=== PATIENT | female | born 1935 | race African-American/Black ===

== ENCOUNTER 2019-04-13 11:50 | Emergency (ER) | payer MEDICARE, OTHER, BC ==
[~2019-04-13] VITALS: Ht 160 cm; Wt 75.0 kg
[~2019-04-13 11:50] MED LIST: ENAL10TA PO
[2019-04-13 12:29] VITALS: BP 128/45
== END 2019-04-13 18:30 | disposition left against medical advice (07) ==
LOC: ER 11:50
DX: Z53.21 Procedure and treatment not carried out due to patient leaving prior to being seen by health care provider (principal); I10 Essential (primary) hypertension; Z88.6 Allergy status to analgesic agent

== ENCOUNTER 2019-04-16 18:02 | Emergency (ER) | payer MEDICARE, OTHER ==
[~2019-04-16] VITALS: Ht 162.6 cm; Wt 73.0 kg
[2019-04-16 18:08] VITALS: BP 168/87
== END 2019-04-16 20:33 | disposition left against medical advice (07) ==
LOC: ER 18:02
DX: R07.89 Other chest pain (principal); Z53.21 Procedure and treatment not carried out due to patient leaving prior to being seen by health care provider
CPT/HCPCS: 93005

== ENCOUNTER 2019-04-18 05:02 | Emergency (ER) | payer MEDICARE, OTHER ==
[~2019-04-18] VITALS: Ht 160 cm; Wt 75.0 kg
[2019-04-18 07:45] LABS: CHLORIDE 110 mEq/L (98-107)
[2019-04-18] MEDS ORDERED: ALBUTEROL (0.083%) 2.5MG/3ML NEB HHN STA (07:49)
[2019-04-18 08:21] LABS: HEMATOCRIT. 31.3 % (36.0-48.0); MEAN CORPUSCULAR HEMOGLOBIN 28.2 pg (28.0-32.0); MEAN CORPUSCULAR VOLUME 88.2 fL (81.0-99.0); MEAN PLATELET VOLUME 7.1 fl (7.4-10.4); PLATELET 260 x1000/uL (130-400); RED BLOOD CELL COUNT 3.55 mill/uL (4.2-5.4); RED CELL DISTRIBUTION WIDTH 13.6 % (11.6-14.6)
[2019-04-18 08:40] LABS: PLATELET ESTIMATE NORMAL
[2019-04-18 09:12] VITALS: BP 132/72
== END 2019-04-18 09:27 | disposition home or self-care (01) ==
LOC: ER 05:02
DX: B34.9 Viral infection, unspecified (principal); I10 Essential (primary) hypertension; Z88.5 Allergy status to narcotic agent
CPT/HCPCS: 36415; 71045; 80053; 85025; 87804; 93005; 94640; 99284; J7611

== ENCOUNTER 2019-04-25 03:20 | Inpatient (IN) | payer MEDICARE, OTHER ==
[~2019-04-25] VITALS: Ht 160 cm; Wt 83.5 kg
[2019-04-25] MEDS ORDERED: ONDANSETRON HCL 4MG/2ML INJ IV STA (03:53)
[2019-04-25 04:16] LABS: HEMATOCRIT. 30.9 % (36.0-48.0); MEAN CORPUSCULAR HEMOGLOBIN 28.3 pg (28.0-32.0); MEAN CORPUSCULAR VOLUME 87.7 fL (81.0-99.0); PLATELET 326 x1000/uL (130-400); RED BLOOD CELL COUNT 3.53 mill/uL (4.2-5.4)
[2019-04-25 04:19] LABS: CHLORIDE 112 mEq/L (98-107)
[2019-04-25 04:35] LABS: PLATELET ESTIMATE NORMAL
[2019-04-25 14:18] LABS: CREATINE KINASE 43 IU/L (26-192)
[2019-04-25 15:28] VITALS: BP 131/93
[2019-04-25 16:33] LABS: BG BASE EXCESS -3.8 mmol/L (-2.0-2.0); BG CARBOXYHEMOGLOBIN 0.3 % (0.5-1.5); BG DEOXYHEMOGLOBIN 3.5 % (0.0-5.0); BG FRACTION INSPIRED OXYGEN 21; BG HCO3 ACT 20.9 mmol/L (22.0-26.0); BG METHEMOGLOBIN 0.1 % (0.0-1.5); BG OXYGEN SATURATION 96.5 % (92.0-98.5); BG OXYHEMOGLOBIN 96.1 % (94.0-97.0); BG PCO2 36.7 mmHg (35.0-45.0); BG PH 7.373 (7.350-7.450); BG PO2 86.8 mmHg (75.0-100.0); BG SAMPLE SITE RIGHT BRACHIAL; BG TOTAL HEMOGLOBIN 11.2 g/dL (12.0-18.0); BG VENT MODE ROOM AIR
[2019-04-25] MEDS ORDERED: SODIUM CHLORIDE 10% FOR INH 15ML VIAL NEB INH NR (17:00)
[2019-04-25] MEDS: MECLIZINE 12.5MG TABLET PO PRN (18:24)
[2019-04-25] MEDS: AMLODIPINE 5MG TABLET PO SCH (18:24)
[2019-04-25] MEDS: SODIUM CHLORIDE 0.45% 1,000 ML IV SCH (18:25)
[2019-04-25] MEDS: GUAIFENESIN/DM 600MG/30MG ER TAB 12HR PO PRN (18:25)
[2019-04-25 20:14] VITALS: BP 115/48
[2019-04-25 20:39] LABS: CLARITY URINE CLEAR (CLEAR); COLOR URINE YELLOW (YELLOW); KETONES URINE NEGATIVE (NEGATIVE); LEUKOCYTE ESTERASE URINE NEGATIVE (NEGATIVE); NITRITE URINE NEGATIVE (NEGATIVE); OCCULT BLOOD URINE NEGATIVE (NEGATIVE); PROTEIN URINE NEGATIVE (NEGATIVE); SPECIFIC GRAVITY URINE 1.015 (1.005-1.030); UROBILINOGEN URINE 0.2 E.U./dL (0.2-1.0)
[2019-04-25] MEDS: IPRATROPIUM/ALBUTEROL 0.5-3(2.5)MG/3ML NEB HHN SCH (20:45)
[2019-04-26] MEDS: IPRATROPIUM/ALBUTEROL 0.5-3(2.5)MG/3ML NEB HHN SCH ×6 (00:43→19:58)
[2019-04-26 00:44] VITALS: BP 119/49
[2019-04-26 04:50] VITALS: BP 133/48
[2019-04-26 06:55] LABS: BASOPHILS % 0.3 % (0.0-2.0); HEMATOCRIT. 32.3 % (36.0-48.0); HEMOGLOBIN. 10.6 g/dL (12.0-16.0); LYMPHOCYTES % 22.1 % (20.0-50.0); MEAN CORPUSCULAR HEMOGLOBIN 28.7 pg (28.0-32.0); MEAN CORPUSCULAR VOLUME 87.2 fL (81.0-99.0); MEAN PLATELET VOLUME 7.1 fl (7.4-10.4); MONOCYTES % 7.9 % (2.0-8.0); NEUTROPHILS % 66.7 % (40.0-76.0); PLATELET 370 x1000/uL (130-400); RED CELL DISTRIBUTION WIDTH 14.3 % (11.6-14.6)
[2019-04-26 08:00] VITALS: BP 122/50
[2019-04-26 08:13] LABS: VITAMIN B12 SERUM 467 pg/mL (211-911)
[2019-04-26 08:19] LABS: C REACTIVE PROTEIN CARDIAC 3.8 mg/L (0.00-3.00)
[2019-04-26 08:22] LABS: T4 FREE 0.84 ng/dL (0.76-1.46)
[2019-04-26] MEDS: PANTOPRAZOLE 40MG DR TABLET PO SCH (09:08)
[2019-04-26] MEDS: AMLODIPINE 5MG TABLET PO SCH (09:08)
[2019-04-26] MEDS ORDERED: SODIUM POLYSTYRENE SULFONATE 15 G/60 ML BOT PO SCH (10:30)
[2019-04-26] MEDS: SODIUM BICARBONATE 650 MG TABLET PO SCH ×2 (14:14→17:00)
[2019-04-26 20:35] VITALS: BP 124/58
[2019-04-26] MEDS: MECLIZINE 12.5MG TABLET PO PRN (21:29)
[2019-04-26] MEDS: GUAIFENESIN/DM 600MG/30MG ER TAB 12HR PO PRN (21:29)
[2019-04-26] MEDS: SODIUM CHLORIDE 0.45% 1,000 ML IV SCH (21:59)
[2019-04-27] VITALS (10 sets, daily range): BP systolic 122–154; BP diastolic 50–68
[2019-04-27] MEDS: IPRATROPIUM/ALBUTEROL 0.5-3(2.5)MG/3ML NEB HHN SCH ×6 (00:04→20:28)
[2019-04-27] MEDS ORDERED: THROAT LOZENGES-BENZOCAINE/MENTH/CETYLPYRD CL LOZENGES MM PRN (01:00)
[2019-04-27 07:39] LABS: HEMATOCRIT. 27.5 % (36.0-48.0); HEMOGLOBIN. 9.5 g/dL (12.0-16.0); MEAN CORPUSCULAR HEMOGLOBIN 29.8 pg (28.0-32.0); MEAN CORPUSCULAR VOLUME 86.7 fL (81.0-99.0); MEAN PLATELET VOLUME 7.1 fl (7.4-10.4); PLATELET 304 x1000/uL (130-400); RED BLOOD CELL COUNT 3.18 mill/uL (4.2-5.4); RED CELL DISTRIBUTION WIDTH 14.3 % (11.6-14.6)
[2019-04-27 08:07] LABS: ALBUMIN 3.2 g/dL (2.9-4.4); ALPHA-1-GLOBULIN 0.3 g/dL (0.0-0.4); ALPHA-2-GLOBULIN 0.9 g/dL (0.4-1.0); BETA GLOBULIN 1.1 g/dL (0.7-1.3); GAMMA GLOBULINS 0.9 g/dL (0.4-1.8); GLOBULIN TOTAL 3.2 g/dL (2.2-3.9); M-SPIKE Not Observed g/dL (Not Observed); TOTAL PROTEIN SERUM 6.4 g/dL (6.0-8.5)
[2019-04-27] MEDS: PANTOPRAZOLE 40MG DR TABLET PO SCH (08:19)
[2019-04-27] MEDS: SODIUM BICARBONATE 650 MG TABLET PO SCH ×3 (08:20→17:43)
[2019-04-27] MEDS: AMLODIPINE 5MG TABLET PO SCH (08:20)
[2019-04-27 14:45] LABS: PLATELET ESTIMATE NORMAL
[2019-04-27] MEDS: SODIUM CHLORIDE 0.45% 1,000 ML IV SCH (16:00)
[2019-04-27] MEDS: GUAIFENESIN/DM 600MG/30MG ER TAB 12HR PO PRN (20:27)
[2019-04-27] MEDS ORDERED: BENZONATATE 100MG CAPSULE PO PRN (23:45)
[2019-04-28] VITALS (8 sets, daily range): BP systolic 128–147; BP diastolic 48–75
[2019-04-28] MEDS: IPRATROPIUM/ALBUTEROL 0.5-3(2.5)MG/3ML NEB HHN SCH ×4 (00:36→12:00)
[2019-04-28] MEDS: FAMOTIDINE 20MG TABLET PO SCH ×2 (00:56→09:17)
[2019-04-28] MEDS: FLUTICASONE PROPIONATE 50MCG/SPRAY BOTTLE BOTHNSTRLS SCH ×2 (01:07→09:18)
[2019-04-28 07:05] LABS: BASOPHILS % 0.3 % (0.0-2.0); EOSINOPHILS % 7.4 % (0.0-5.0); HEMATOCRIT. 28.3 % (36.0-48.0); HEMOGLOBIN. 9.5 g/dL (12.0-16.0); LYMPHOCYTES % 21.8 % (20.0-50.0); MEAN CORPUSCULAR HEMOGLOBIN 28.9 pg (28.0-32.0); MEAN CORPUSCULAR VOLUME 86.1 fL (81.0-99.0); MEAN PLATELET VOLUME 7.1 fl (7.4-10.4); MONOCYTES % 9.1 % (2.0-8.0); NEUTROPHILS % 61.4 % (40.0-76.0); PLATELET 291 x1000/uL (130-400); RED BLOOD CELL COUNT 3.29 mill/uL (4.2-5.4); RED CELL DISTRIBUTION WIDTH 13.9 % (11.6-14.6)
[2019-04-28] MEDS ORDERED: FAMOTIDINE 20MG TABLET PO SCH (09:00)
[2019-04-28] MEDS ORDERED: FLUTICASONE PROPIONATE 50MCG/SPRAY BOTTLE BOTHNSTRLS SCH (09:00)
[2019-04-28] MEDS: SODIUM BICARBONATE 650 MG TABLET PO SCH (09:17)
[2019-04-28] MEDS: AMLODIPINE 5MG TABLET PO SCH (09:18)
== END 2019-04-28 12:17 | disposition home or self-care (01) | DRG 682 ==
LOC: ER 03:20 → 6WST 05:58 → EDBEDREQ 06:00 → EDBEDREQTM 06:00 → ENRESERV 13:51
PROVIDERS: ADMIT Internal Medicine Endocrinology, Diabetes & Metabolism; ATTEND Internal Medicine Endocrinology, Diabetes & Metabolism
DX: N17.9 Acute kidney failure, unspecified (principal); J18.0 Bronchopneumonia, unspecified organism; E87.2 Acidosis; N18.4 Chronic kidney disease, stage 4 (severe); H81.4 Vertigo of central origin; E03.9 Hypothyroidism, unspecified; E78.00 Pure hypercholesterolemia, unspecified; E78.5 Hyperlipidemia, unspecified; E87.5 Hyperkalemia; I12.9 Hypertensive chronic kidney disease with stage 1 through stage 4 chronic kidney disease, or unspecified chronic kidney disease; I44.0 Atrioventricular block, first degree; J40 Bronchitis, not specified as acute or chronic; J98.01 Acute bronchospasm; E04.2 Nontoxic multinodular goiter; Z96.641 Presence of right artificial hip joint; J06.9 Acute upper respiratory infection, unspecified; D64.9 Anemia, unspecified; I71.9 Aortic aneurysm of unspecified site, without rupture; K76.89 Other specified diseases of liver; Z53.20 Procedure and treatment not carried out because of patient's decision for unspecified reasons; Z80.3 Family history of malignant neoplasm of breast; Z80.8 Family history of malignant neoplasm of other organs or systems; Z82.49 Family history of ischemic heart disease and other diseases of the circulatory system; Z83.3 Family history of diabetes mellitus; Z88.0 Allergy status to penicillin; Z90.711 Acquired absence of uterus with remaining cervical stump; Z88.6 Allergy status to analgesic agent; Z79.899 Other long term (current) drug therapy
CPT/HCPCS: 36415; 36600; 71045; 71250; 76770; 80048; 80053; 81003; 82375; 82533; 82550; 82607; 82805; 83036; 84132; 84145; 84155; 84165; 84439; 84443; 84481; 84484; 85025; 86141; 87070; 87804; 93005; 93880; 97162; 99285; C1893; J2405; J7131; J7620; J8597

== ENCOUNTER 2022-01-27 15:11 | Emergency (ER) | payer MEDICARE, OTHER ==
[~2022-01-27] VITALS: Ht 162.6 cm; Wt 80.0 kg
[~2022-01-27 15:11] MED LIST changes: -ENAL10TA PO; +ENAL10TA19 PO
[2022-01-27 19:07] VITALS: BP 210/86
== END 2022-01-27 18:58 | disposition left against medical advice (07) ==
LOC: ER 15:11 → CANBEDREQ 01-28 01:46
DX: Z13.9 Encounter for screening, unspecified (principal); R60.0 Localized edema; I49.9 Cardiac arrhythmia, unspecified
CPT/HCPCS: 71045; 93005; 99283